=== PATIENT | female | born 1935 | race Caucasian/White ===

== ENCOUNTER 2016-08-10 16:59 | Inpatient (IN) | payer OTHER ==
[2016-08-10 17:08] VITALS: BMI 21.2
--- NOTE | 2016-08-10 19:45 | PDOC ---
History of Present Illness - General History Source: Patient, Old Records Exam Limitations: No Limitations - History of Present Illness Initial Comments: 08/10/16 21:29 Patient is a 80 year old female with significant past medical history of HTN, CAD, hx of kidney ca, chronic kidney disease, and implantable pacemaker/ defibrillator who presents to the ED with hematuria for 5 days. Patient notes that she has been feeling nauseous which is chronic for her. She also reports dysuria and cough. Patient is a poor historian. She denies fever, chills, vomiting, diarrhea, constipation and headache. PSH - Nephrectomy for renal ca, endarterectomy, pacemaker PCP - Dr. May Assembler Crimper - Dr. Radha HER - Dr. Dick <Daylin Oneal - Last Filed: 08/10/16 21:55> <Ronel Hernandez - Last Filed: 08/11/16 01:38> - General Chief Complaint: Urinary Problem Stated Complaint: HEMORRAGE/NAUSEA Time Seen by Provider: 08/10/16 19:44 Past History <Daylin Oneal - Last Filed: 08/10/16 21:55> - Past Medical History Cancer: Yes (LT KIDNEY) Cardiac Disorders: Yes (IRRG HR-PACEMAKER -4 AGO) GI Disorders: Yes (DIVERTICULOSIS) Disorders: Yes (MICROSCOPIC HEMATURIA, GOUT) HTN: Yes Hypercholesterolemia: Yes Suicide Attempt (Hx): No Thyroid Disease: Yes (HYPO) - Surgical History Abdominal Surgery: Yes (LEFT HERNIA REPAIR) Cardiac Surgery: Yes (PACEMAKER,STENT; B/L CAROTID ENDARECTOMIES) Orthopedic Surgery: Yes (INJECTION RIGHT KNEE) - Psycho/Social/Smoking Cessation Hx Anxiety: No Suicidal Ideation: No Smoking Status: Yes Smoking History: Never smoked Have you smoked in the past 12 months: No Number of Cigarettes Smoked Daily: 0 If you are a former smoker, when did you quit?: 2006 Information on smoking cessation initiated: No Hx Alcohol Use: No Drug/Substance Use Hx: No Substance Use Type: None Hx Substance Use Treatment: No <Ronel Hernandez - Last Filed: 08/11/16 01:38> - Past Medical History Allergies/Adverse Reactions: Allergies Allergy/AdvReac Type Severity Reaction Status Date / Time No Known Drug Allergies Allergy Verified 08/10/16 17:04 Home Medications: Ambulatory Orders Alendronate Sodium [Binosto] 70 mg PO WEEKLY 08/10/16 Allopurinol [Zyloprim -] 100 mg PO DAILY 08/10/16 Amlodipine Besylate 10 mg PO DAILY 08/10/16 Aspirin [ASA -] 81 mg PO DAILY 08/10/16 Doxazosin Mesylate 2 mg PO DAILY 08/10/16 Levothyroxine [Synthroid -] 100 mcg PO DAILY 08/10/16 Losartan Potassium [Cozaar -] 25 mg PO DAILY 08/10/16 Metoprolol Succinate [Toprol Xl -] 25 mg PO BID 08/10/16 Rosuvastatin Calcium [Crestor] 10 mg PO DAILY 08/10/16 Review of Systems - Review of Systems Able to Perform ROS?: Yes Comments:: 08/10/16 21:30 CONSTITUTIONAL: Absent: fever, chills, diaphoresis, generalized weakness, malaise, loss of appetite HEENT: Absent: rhinorrhea, nasal congestion, throat pain, throat swelling, difficulty swallowing, mouth swelling, ear pain, eye pain, visual Changes CARDIOVASCULAR: Absent: chest pain, syncope, palpitations, irregular heart rate, lightheadedness , peripheral edema RESPIRATORY: Absent: cough, shortness of breath, dyspnea with exertion, orthopnea, wheezing, stridor, hemoptysis GASTROINTESTINAL: Absent: abdominal pain, abdominal distension, nausea, vomiting, diarrhea, constipation, melena, hematochezia GENITOURINARY: Present: dysruria, hematuria Absent: frequency, urgency, hesitancy, flank pain, genital pain MUSCULOSKELETAL: Absent: myalgia, arthralgia, joint swelling SKIN: Absent: rash, itching, pallor HEMATOLOGIC/IMMUNOLOGIC: Absent: easy bleeding, easy bruising, lymphadenopathy, frequent infections ENDOCRINE: Absent: unexplained weight gain, unexplained weight loss, heat intolerance, cold intolerance NEUROLOGIC: Absent: headache, focal weakness or paresthesias, dizziness, unsteady gait, seizure, mental status changes, bladder or bowel incontinence PSYCHIATRIC: Absent: anxiety, depression, suicidal or homicidal ideation, hallucinations. <Daylin Oneal - Last Filed: 08/10/16 21:55> *Physical Exam - Vital Signs Last Vital Signs Temp Pulse Resp BP Pulse Ox 98.3 F 77 18 130/66 100 08/10/16 17:04 08/10/16 17:04 08/10/16 17:04 08/10/16 17:04 08/10/16 17:04 - Physical Exam Comments: 08/10/16 21:31 GENERAL: Well developed, well nourished. Awake and alert. No acute distress. HEENT: Normocephalic, atraumatic. PERRLA, EOMI. No conjunctival pallor. Sclera are non- icteric. Moist mucous membranes. Oropharynx is clear. NECK: Supple. Full ROM. No JVD. Carotid pulses 2+ and symmetric, without bruits. No thyromegaly. No lymphadenopathy. CARDIOVASCULAR: Regular rate and rhythm. No murmurs, rubs, or gallops. Distal pulses are 2+ and symmetric. PULMONARY: No evidence of respiratory distress. Lungs clear to auscultation bilaterally. No wheezing, rales or rhonchi. ABDOMINAL: Soft. Non-tender. Non-distended. No rebound or guarding. No organomegaly. Normoactive bowel sounds. MUSCULOSKELETAL Normal range of motion at all joints. No bony deformities or tenderness. No CVA tenderness. EXTREMITIES: No cyanosis. No clubbing. No edema. No calf tenderness. SKIN: +Scar from endarterectomy on neck. Warm and dry. Normal capillary refill. No rashes. No jaundice. NEUROLOGICAL: Alert, awake, appropriate. Cranial nerves 2-12 intact. No deficits to light touch and temperature in face, upper extremities and lower extremities. No motor deficits in the in face, upper extremities and lower extremities. Normoreflexic in the upper and lower extremities. Normal speech. Toes are down-going bilaterally. Gait is normal without ataxia. PSYCHIATRIC: Cooperative. Good eye contact. Appropriate mood and affect. <Daylin Oneal - Last Filed: 08/10/16 21:55> - Vital Signs Last Vital Signs Temp Pulse Resp BP Pulse Ox 98.3 F 77 18 130/66 100 08/10/16 17:04 08/10/16 17:04 08/10/16 17:04 08/10/16 17:04 08/10/16 17:04 <Ronel Hernandez - Last Filed: 08/11/16 01:38> ED Treatment Course - LABORATORY CBC & Chemistry Diagram: 08/10/16 20:20 08/10/16 20:20 - ADDITIONAL ORDERS Additional order review: Laboratory Results 08/10/16 08/10/16 20:20 19:55 Sodium 131 L Potassium 4.4 Chloride 96 L Carbon Dioxide 23 Anion Gap 12 BUN 84 H D Creatinine 4.0 H D Creat Clearance w eGFR 10.72 Random Glucose 115 H D Calcium 7.7 L Total Bilirubin 0.4 D AST 48 H D ALT 35 D Alkaline Phosphatase 64 Total Protein 6.5 Albumin 3.1 L Urine Color Dkyellow Urine Appearance Cloudy Urine pH 5.0 Ur Specific [place] 1.012 Urine Protein 2+ H Urine Glucose (UA) Negative Urine Ketones Negative Urine Blood 2+ H Urine Nitrite Negative Urine Bilirubin Negative Urine Urobilinogen Negative Ur Leukocyte Esterase 3+ H D Urine RBC 26 Urine WBC 621 Ur Epithelial Cells Rare Urine Bacteria Many Hyaline Casts 18 Urine Mucus Rare 08/10/16 20:20 RBC 3.74 D MCV 90.4 MCHC 33.6 RDW 15.6 MPV 11.3 H D Neutrophils % 84.0 H Lymphocytes % 7.0 L D Monocytes % 9.0 <Daylin Oneal - Last Filed: 08/10/16 21:55> - LABORATORY CBC & Chemistry Diagram: 08/10/16 20:20 08/10/16 20:20 <Ronel Hernandez - Last Filed: 08/11/16 01:38> Medical Decision Making - Medical Decision Making 08/10/16 21:21 A call was placed to Dr. May. Case discussed with Dr. Chavez A call was placed to Dr. Radha Doty. Awaiting a call back 08/10/16 21:[address] Radha Doty. <Daylin Oneal - Last Filed: 08/10/16 21:55> - Medical Decision Making 08/11/16 01:36 1-year-old female with a history of renal carcinoma status post nephrectomy, chronic kidney disease presents because of hematuria UA reveals a urinary tract infection. Patient is afebrile and her CBC is unremarkable In reviewing her chemistries, her creatinine was 4 and her BUNs in the 80s. In reviewing her past medical records, her creatinine had never been above 1.8 -Dr May was being covered by Dr Chavez and He wants the patient admitted to [facility]. I also spoke to the joint maker machine Dr. Radha Doty who agrees with the MedSurg admission Started on a low dose of Levaquin becasue of the increased creatinine <Ronel Hernandez - Last Filed: 08/11/16 01:38> *DC/Admit/Observation/Transfer - Attestations Scribe Attestion: 08/10/16 21:31 Documentation prepared by MICHELLE Alvarez, acting as medical screener for Ronel Hernandez MD. <Daylin Oneal - Last Filed: 08/10/16 21:55> - Discharge Dispostion Admit: Yes <Ronel Hernandez - Last Filed: 08/11/16 01:38> Diagnosis at time of Disposition: CKD (chronic kidney disease) Qualifiers: Chronic kidney disease stage: unspecified stage Qualified Code(s): N18.9 - Chronic kidney disease, unspecified Acute renal failure Qualifiers: Acute renal failure type: unspecified Qualified Code(s): N17.9 - Acute kidney failure, unspecified UTI (urinary tract infection) Qualifiers: Urinary tract infection type: acute cystitis Hematuria presence: without hematuria Qualified Code(s): N30.00 - Acute cystitis without hematuria - Discharge Dispostion Condition at time of disposition: Stable - Referrals
[2016-08-10 20:31] LABS: MCH 30.4 pg (25.7-33.7); MCHC 33.6 g/dl (32.0-36.0); MEAN CELL VOLUME 90.4 fl (80-96); RDW 15.6 % (11.6-15.6); WHITE BLOOD COUNT 12.2 K/mm3 (4.0-10.0)
[2016-08-10 20:34] LABS: URINE APPEARANCE CLOUDY; URINE BILIRUBIN NEGATIVE (NEGATIVE); URINE COLOR DKYELLOW; URINE GLUCOSE (UA) NEGATIVE (NEGATIVE); URINE KETONE NEGATIVE (NEGATIVE); URINE NITRITE NEGATIVE (NEGATIVE); URINE UROBILINOGEN NEGATIVE E.U./dl (0.2-1.0)
[2016-08-10 20:51] LABS: URINE BLOOD 2+ (NEGATIVE); URINE LEUK ESTERASE 3+ (NEGATIVE); URINE PROTEIN 2+ (NEGATIVE)
[2016-08-10 20:54] LABS: URINE BACTERIA MANY /hpf (NONE SEEN); URINE HYALINE CAST 18 /lpf; URINE MUCUS RARE; URINE RBC 26 /hpf (0-3); URINE WBC 621 /hpf (3-5)
[2016-08-10 20:55] LABS: ALBUMIN 3.1 g/dl (3.4-5.0); BILIRUBIN,TOTAL 0.4 mg/dL (0.2-1.0); CALCIUM 7.7 mg/dL (8.5-10.1); TOT PROT 6.5 g/dl (6.4-8.2)
[2016-08-10 21:03] LABS: MEAN PLT VOLUME 11.3 fl (7.5-11.1); PLATELET COUNT 139 K/MM3 (134-434)
[2016-08-10 21:04] LABS: PLATELET COMMENT2 NO CLUMPING NOTED; PLATELET ESTIMATE DECREASED (NORMAL); POLYCHROMASIA FEW
[2016-08-10] MEDS ORDERED: LEVOFLOXACIN 500 MG IVPB 100 ML IVPB ONE ×2 (21:12→21:43)
[2016-08-10] MEDS ORDERED: SODIUM CHLORIDE 500 ML IV STA (21:17)
[2016-08-10] MEDS ORDERED: LEVOFLOXACIN 250 MG IVPB 50 ML IVPB ONE (21:49)
[2016-08-10] MEDS ORDERED: ONDANSETRON 4 MG/2 ML VIAL IVPB PRN (22:04)
[2016-08-10] MEDS ORDERED: ACETAMINOPHEN 325 MG TABLET (FP) PO PRN (22:04)
[2016-08-10] MEDS ORDERED: LEVOFLOXACIN 750 MG TABLET PO STA (22:10)
[2016-08-10] MEDS: SODIUM CHLORIDE 1,000 ML IV SCH (22:19)
[2016-08-11] MEDS ORDERED: LEVOTHYROXINE NA 25 MCG TABLET (FP) ONE (06:15)
[2016-08-11] MEDS: LEVOTHYROXINE NA 100 MCG TABLET (FP) PO SCH (07:19)
[2016-08-11 08:11] LABS: BASOPHIL 0.2 % (0-2.0); EOSINOPHIL 0.1 % (0-4.5); MCH 30.5 pg (25.7-33.7); MCHC 33.5 g/dl (32.0-36.0); MEAN PLT VOLUME 10.8 fl (7.5-11.1); NEUTROPHILS 84.2 % (42.8-82.8); PLATELET COUNT 86 K/MM3 (134-434); RDW 15.5 % (11.6-15.6); WHITE BLOOD COUNT 6.6 K/mm3 (4.0-10.0)
[2016-08-11 08:47] LABS: CALCIUM 7.4 mg/dL (8.5-10.1)
[2016-08-11 08:49] LABS: PHOSPHOROUS 2.6 mg/dL (2.5-4.9)
--- NOTE | 2016-08-11 09:53 | CONSULT ---
Consult Consult Specialty:: Nephrology ( Drs. radha Doty/ Hal) Reason for Consultation:: 80 y/o female admitted with gross Hematuria and markedly elevated Serum Creatinine. Has h/o CKD 3, and in May 2016 her Serum Cr was 1.85 with a eGFR of 25. Also has h/o Hypertension, AICD, Coronary artery disease. Patient had pain when passing urine for the past week, and reports gross blood for the same period. - History Source History Provided By: Patient, Medical Record Limitations to Obtaining History: No Limitations - Past Medical History Cardio/Vascular: Yes: CAD, HTN, Other (pacemaker) Pulmonary: Yes: COPD Renal/: Yes: Renal Inusuff, Cancer (Patient has h/o partial nephrectomy for Ca Kidney) Endocrine: Yes: Hypothyroidism - Past Surgical History Past Surgical History: Yes: Carotid Endarterectomy - Alcohol/Substance Use Hx Alcohol Use: No - Smoking History Smoking history: Never smoked Have you smoked in the past 12 months: No Aproximately how many cigarettes per day: 0 If you are a former smoker, when did you quit?: 2006 Home Medications - Allergies Allergies/Adverse Reactions: Allergies Allergy/AdvReac Type Severity Reaction Status Date / Time No Known Drug Allergies Allergy Verified 08/10/16 17:04 - Home Medications Home Medications: Ambulatory Orders Alendronate Sodium [Binosto] 70 mg PO WEEKLY 08/10/16 Allopurinol [Zyloprim -] 100 mg PO DAILY 08/10/16 Amlodipine Besylate 10 mg PO DAILY 08/10/16 Aspirin [ASA -] 81 mg PO DAILY 08/10/16 Doxazosin Mesylate 2 mg PO DAILY 08/10/16 Levothyroxine [Synthroid -] 100 mcg PO DAILY 08/10/16 Losartan Potassium [Cozaar -] 25 mg PO DAILY 08/10/16 Metoprolol Succinate [Toprol Xl -] 25 mg PO BID 08/10/16 Rosuvastatin Calcium [Crestor] 10 mg PO DAILY 08/10/16 Review of Systems - Review of Systems Constitutional: reports: No Symptoms Eyes: reports: No Symptoms HENT: reports: No Symptoms Neck: reports: No Symptoms Cardiovascular: denies: Chest Pain Respiratory: denies: No Symptoms Genitourinary: reports: Hematuria, Pain Neurological: reports: No Symptoms Hematology/Lymphatic: reports: No Symptoms Physical Exam Vital Signs: Vital Signs Temperature 99.7 F H 01/24/17 06:05 Pulse Rate 96 H 08/11/16 09:07 Respiratory Rate 20 08/11/16 09:07 Blood Pressure 116/67 08/11/16 09:07 O2 Sat by Pulse Oximetry (%) 100 08/10/16 17:04 Constitutional: Yes: No Distress, Calm HENT: Yes: Normocephalic Neck: Yes: Trachea Midline Respiratory: Yes: CTA Bilaterally Gastrointestinal: Yes: Normal Bowel Sounds, Soft Renal/: Yes: Hematuria Extremities: Yes: WNL Wound/Incision: Yes: Clean/Dry Neurological: Yes: Alert, Oriented Labs: CBC, BMP 08/11/16 07:15 08/11/16 07:15 Problem List - Problems (1) Acute renal failure Code(s): N17.9 - ACUTE KIDNEY FAILURE, UNSPECIFIED Qualifiers: Acute renal failure type: unspecified Qualified Code(s): N17.9 - Acute kidney failure, unspecified (2) CKD (chronic kidney disease) Code(s): N18.9 - CHRONIC KIDNEY DISEASE, UNSPECIFIED Qualifiers: Chronic kidney disease stage: unspecified stage Qualified Code(s): N18.9 - Chronic kidney disease, unspecified (3) UTI (urinary tract infection) Code(s): N39.0 - URINARY TRACT INFECTION, SITE NOT SPECIFIED Qualifiers: Urinary tract infection type: acute cystitis Hematuria presence: without hematuria Qualified Code(s): N30.00 - Acute cystitis without hematuria (4) CAD (coronary artery disease) Code(s): I25.10 - ATHSCL HEART DISEASE OF [place] CORONARY ARTERY W/O ANG PCTRS (5) Carotid atherosclerosis Code(s): I65.29 - OCCLUSION AND STENOSIS OF UNSPECIFIED CAROTID ARTERY (6) Hypothyroidism Code(s): E03.9 - HYPOTHYROIDISM, UNSPECIFIED (7) Pacemaker Code(s): Z95.0 - PRESENCE OF CARDIAC PACEMAKER (8) Hematuria Code(s): R31.9 - HEMATURIA, UNSPECIFIED Assessment/Plan 80 y/o female admitted with 1. Gross Hematuria. Hemorrhagic cystitis being entertained, but the likely Dx of a Neoplasm can not be ignored. 2. Acute Kidney Injury, the etiology of which seems to be elusive at this point. Can not exclude the possibility of an obstructive uropathy. Also need to r/o other etiologic factors. 3. Anemia of blood loss. 4. Coronary artery disease 5. Peripheral Vascular disease. S/p Carotid endarterectomy 6. Hypothyroidism. Will continue the Antibiotics. evaluation Monitor the Renal functions. Thank you. Will follow with you. Radha Doty MD
[2016-08-11] MEDS ORDERED: HEPARIN NA (PORCINE) 5,000 UNITS/ML 1ML VIAL SQ SCH (10:00)
[2016-08-11] MEDS ORDERED: ASPIRIN 81 MG CHEWABLE TABLETS PO SCH (10:00)
[2016-08-11] MEDS ORDERED: CEFTRIAXONE 1 GM in DEXTROSE 5%-WATER - 50 ML IVPB SCH (10:00)
[2016-08-11] MEDS: LACTOBACILLUS ACIDOPHILUS 1 EACH TAB (FP) PO SCH (11:07)
[2016-08-11] MEDS: amLODIPine BESYLATE 10 MG TABLET (FP) PO SCH (11:07)
[2016-08-11] MEDS: cefTRIAXone 1 GM/50 ML BAG (PRE-DOCKED) IVPB SCH (11:08)
[2016-08-11] MEDS: METOPROLOL SUCCINATE 25 MG TAB.SR.24H (FP) PO SCH ×2 (11:08→21:47)
[2016-08-11] MEDS: SODIUM CHLORIDE 1,000 ML IV SCH (11:10)
--- NOTE | 2016-08-11 11:59 | HP ---
Admitting History and Physical - Primary Care Physician PCP: Jhoan May - Admission Chief Complaint: I felt terrible History of Present Illness: Ms Kiran is a very pleasant 80 year old female who comes in complaining of weakness. She says between a few weeks to a few months ago she was treated for strep throat. She says she completed this course but it took her a long time to get over it. Then she says she began to feel weak (I cannot determine when this started as she is unable to tell me) that became progressively worse. She does not know if she was feverish but did not feel hot/cold. She did not have lightheadedness or passing out. She denies cp and sob secondary to this. She has chronic nausea that is unchanged. She denies diarrhea and constipation. She says she has pain with urination and difficulty, and she recently had blood in her urine and it was "a lot". She denies swelling in her leg. She presented to the ER and was found to have a UTI and ARF. Currently she is saying she feels much better. History Source: Patient Limitations to Obtaining History: No Limitations - Past Medical History Cardiovascular: Yes: CAD, HTN, Other (pacemaker) Pulmonary: Yes: COPD Renal/: Yes: Renal Inusuff, Cancer (Patient has h/o partial nephrectomy for Ca Kidney) Endocrine: Yes: Hypothyroidism - Past Surgical History Past Surgical History: Yes: Carotid Endarterectomy, Hernia Repair, Nephrectomy ( partial) - Smoking History Smoking history: Never smoked Have you smoked in the past 12 months: No Aproximately how many cigarettes per day: 0 If you are a former smoker, when did you quit?: 2006 - Alcohol/Substance Use Hx Alcohol Use: No History of Substance Use: reports: None - Social History ADL: Independent Home Medications - Allergies Allergies/Adverse Reactions: Allergies Allergy/AdvReac Type Severity Reaction Status Date / Time No Known Drug Allergies Allergy Verified 08/10/16 17:04 - Home Medications Home Medications: Ambulatory Orders Alendronate Sodium [Binosto] 70 mg PO WEEKLY 08/10/16 Allopurinol [Zyloprim -] 100 mg PO DAILY 08/10/16 Amlodipine Besylate 10 mg PO DAILY 08/10/16 Aspirin [ASA -] 81 mg PO DAILY 08/10/16 Doxazosin Mesylate 2 mg PO DAILY 08/10/16 Levothyroxine [Synthroid -] 100 mcg PO DAILY 08/10/16 Losartan Potassium [Cozaar -] 25 mg PO DAILY 08/10/16 Metoprolol Succinate [Toprol Xl -] 25 mg PO BID 08/10/16 Rosuvastatin Calcium [Crestor] 10 mg PO DAILY 08/10/16 Family Disease History - Family Disease History Family Disease History: Other: Brother (arthritis) Review of Systems Findings/Remarks: full review of systems obtained, as per HPI and otherwise negative Physical Examination Vital Signs: Vital Signs Temperature 99.2 F 08/11/16 10:00 Pulse Rate 74 08/11/16 10:00 Respiratory Rate 20 08/11/16 10:00 Blood Pressure 110/57 08/11/16 10:00 O2 Sat by Pulse Oximetry (%) 100 08/10/16 17:04 Constitutional: Yes: Well Nourished, No Distress, Calm Eyes: Yes: Conjunctiva Clear, EOM Intact HENT: Yes: Atraumatic, Normocephalic Cardiovascular: Yes: Regular Rate and Rhythm. No: Gallop, Murmur, Rub Respiratory: Yes: Regular, CTA Bilaterally. No: Rales, Rhonchi, Wheezes Gastrointestinal: Yes: Normal Bowel Sounds, Soft. No: Distention, Tenderness Extremities: Yes: WNL Edema: No Labs: CBC, BMP 08/11/16 07:15 08/11/16 07:15 Imaging - Results Chest X-ray: Report Reviewed, Image Reviewed Problem List - Problems (1) UTI (urinary tract infection) Assessment/Plan: -patient presents with weakness and hematuria -urinalysis positive for UTI -cultures pending -given levaquin in the ED -will change to rocephin secondary to renal function -patient says feeling improved Code(s): N39.0 - URINARY TRACT INFECTION, SITE NOT SPECIFIED Qualifiers: Urinary tract infection type: acute cystitis Hematuria presence: with hematuria Qualified Code(s): N30.01 - Acute cystitis with hematuria (2) Acute renal failure Assessment/Plan: -patient with significantly increase creatinine -nephrology consulted -follow up renal ultrasound and bladder ultrasound -continue hydration Code(s): N17.9 - ACUTE KIDNEY FAILURE, UNSPECIFIED Qualifiers: Acute renal failure type: unspecified Qualified Code(s): N17.9 - Acute kidney failure, unspecified (3) CKD (chronic kidney disease) Assessment/Plan: -with ARF -nephrology following -baseline creatinine around 1.8 Code(s): N18.9 - CHRONIC KIDNEY DISEASE, UNSPECIFIED Qualifiers: Chronic kidney disease stage: unspecified stage Qualified Code(s): N18.9 - Chronic kidney disease, unspecified (4) Hematuria Assessment/Plan: -? secondary to UTI, but must consider malignancy considering history -urology consult -holding aspirin -change heparin to SCDs -monitor, currently urine looks clear Code(s): R31.9 - HEMATURIA, UNSPECIFIED (5) HLD (hyperlipidemia) Assessment/Plan: -continue crestor Code(s): E78.5 - HYPERLIPIDEMIA, UNSPECIFIED (6) HTN (hypertension) Assessment/Plan: -continue toprol xl, cardura, and norvasc -well controlled Code(s): I10 - ESSENTIAL (PRIMARY) HYPERTENSION (7) Hypothyroidism Assessment/Plan: -continue synthroid Code(s): E03.9 - HYPOTHYROIDISM, UNSPECIFIED (8) CAD (coronary artery disease) Assessment/Plan: -quiescent -holding aspirin secondary to hematuria -otherwise continue home regimen Code(s): I25.10 - ATHSCL HEART DISEASE OF [place] CORONARY ARTERY W/O ANG PCTRS
--- NOTE | 2016-08-11 12:46 | EKG ---
Test Reason : Blood Pressure : / mmHG Vent. Rate : 092 BPM Atrial Rate : 092 BPM P-R Int : 296 ms QRS Dur : 168 ms QT Int : 422 ms P-R-T Axes : 000 -76 092 degrees QTc Int : 521 ms Atrial-sensed ventricular-paced rhythm with prolonged AV conduction WITH OCCASIONAL PREMATURE VENTRICULAR COMPLEXES ABNORMAL ECG WHEN COMPARED WITH ECG OF 21-FEB-2013 14:26, NO SIGNIFICANT CHANGE WAS FOUND Confirmed by RICARDO FIGUEROA, ABDIAZIZ ([id number]) on 08/11/2016 12:45:51 PM Referred By: Confirmed By:ABDIAZIZ SILVA MD
[2016-08-11] MEDS: DOXAZOSIN MESYLATE 2 MG TABLET (FP) PO SCH (16:03)
[2016-08-11] MEDS ORDERED: PT OWN MED DRAWER 7, Y5N ONE ×2 (20:58→21:06)
[2016-08-11] MEDS: ROSUVASTATIN CA 10 MG TABLET (FP) PO SCH (21:46)
[2016-08-12] MEDS: LEVOTHYROXINE NA 100 MCG TABLET (FP) PO SCH (06:14)
[2016-08-12 07:05] LABS: BASOPHIL 0.5 % (0-2.0); EOSINOPHIL 0.4 % (0-4.5); MCH 30.5 pg (25.7-33.7); MCHC 34.1 g/dl (32.0-36.0); MEAN CELL VOLUME 89.4 fl (80-96); MEAN PLT VOLUME 11.2 fl (7.5-11.1); NEUTROPHILS 81.3 % (42.8-82.8); PLATELET COUNT 107 K/MM3 (134-434); RDW 15.9 % (11.6-15.6); WHITE BLOOD COUNT 6.6 K/mm3 (4.0-10.0)
[2016-08-12 07:32] LABS: ALBUMIN 2.5 g/dl (3.4-5.0); BILIRUBIN,TOTAL 0.3 mg/dL (0.2-1.0); CALCIUM 7.5 mg/dL (8.5-10.1); CREATININE 3.8 mg/dL (0.55-1.02); MAGNESIUM 2.2 mg/dL (1.8-2.4); PHOSPHOROUS 3.1 mg/dL (2.5-4.9); TOT PROT 5.7 g/dl (6.4-8.2)
[2016-08-12] MEDS: LACTOBACILLUS ACIDOPHILUS 1 EACH TAB (FP) PO SCH (10:14)
[2016-08-12] MEDS: amLODIPine BESYLATE 10 MG TABLET (FP) PO SCH (10:14)
[2016-08-12] MEDS: METOPROLOL SUCCINATE 25 MG TAB.SR.24H (FP) PO SCH ×2 (10:14→21:54)
[2016-08-12] MEDS: cefTRIAXone 1 GM/50 ML BAG (PRE-DOCKED) IVPB SCH (10:14)
[2016-08-12] MEDS: DOXAZOSIN MESYLATE 2 MG TABLET (FP) PO SCH (10:16)
--- NOTE | 2016-08-12 10:26 | PN ---
Progress Note (short form) - Note Progress Note: Renal Follow up for NORMAN on CKD Pt seen and examined in the ICU awake and alert no acute complaints denies any further hematuria no abd pain No N/V/D denies sob, chest pain Vital Signs Temperature 97.8 F 08/12/16 06:00 Pulse Rate 80 08/12/16 06:00 Respiratory Rate 18 08/12/16 06:00 Blood Pressure 105/59 08/12/16 06:00 O2 Sat by Pulse Oximetry (%) 95 08/11/16 21:00 Intake & Output 08/09/16 08/10/16 08/11/16 08/12/16 23:59 23:59 23:59 23:59 Intake Total 600 600 Output Total 350 Balance 250 600 Weight 116 lb Gen: NAD, awake and alert HEENT: NC/AT, no JVD CVS: RRR, No M/R Lungs: CTA no rales or wheeze Abd: soft NT/ND Ext: No edema, clubbing or cyanosis : No bladder distension CBC, BMP 08/12/16 05:20 08/12/16 05:20 Laboratory Tests 08/10/16 08/12/16 19:55 05:20 Calcium 7.5 L Phosphorus 3.1 Magnesium 2.2 AST 128 H D ALT 99 H D Albumin 2.5 L Urine Protein 2+ H Urine Blood 2+ H Ur Leukocyte Esterase 3+ H D Urine RBC 26 Urine WBC 621 Renal US: 12.2/8.9 Hyperechoic kidneys w/o hydronephrosis. Diffuse thickening of bladder wall. Current Medications Acetaminophen (Tylenol -) 650 mg PO Q4H PRN PRN Reason: FEVER OR PAIN Amlodipine Besylate (Norvasc -) 10 mg PO DAILY [facility] Last Admin: 08/12/16 10:14 Dose: 10 mg Ceftriaxone Sodium (Rocephin 1gm Ivpb (Pre-Docked)) 1 gm IVPB DAILY [facility] Last Admin: 08/12/16 10:14 Dose: 1 gm Doxazosin Mesylate (Cardura -) 2 mg PO DAILY [facility] Last Admin: 08/12/16 10:16 Dose: 2 mg Lactobacillus Acidophilus (Bacid -) 1 tab PO DAILY [facility] Last Admin: 08/12/16 10:14 Dose: 1 tab Levothyroxine Sodium (Synthroid -) 100 mcg PO DAILY@0700 [facility] Last Admin: 08/12/16 06:14 Dose: 100 mcg Metoprolol Succinate (Toprol Xl -) 25 mg PO BID [facility] Last Admin: 08/12/16 10:14 Dose: 25 mg Ondansetron HCl (Zofran Injection) 4 mg IVPB Q6H PRN PRN Reason: NAUSEA Rosuvastatin Calcium (Crestor -) 10 mg PO HS [facility] Last Admin: 08/11/16 21:46 Dose: 10 mg A/P 80 Year old woman with PMhx of CKD Stage 3 (baseline Cr 1.85), Hypertension, AICD presented with hematuria and found to have Acute Kidney Injury with Cr of 4. #Acute on Chronic Renal Insufficiency Etiolgy remains unclear Renal US shows no acute obstruction UA with 2+ blood and 2+ protein in setting of suspected UTI Pt with history of sore throat (not confirmed to have strep) -> will need to r/ o post strep GN Check C3, C4, CH50, ASO Check FeNa, UPCR continue gentle IVF for now avoid JUANCHO/ARB no acute indication for WAISTLINE JOINER LOCKSTITCH at this time Dose all meds for Cr Cl less then 10 #Hematuria/UTI hematuria resolving continue Abx as per PMD f/u cultures #Hypertension Hold amlodipine for now as BP is marginal #Hyponatremia improving with isotionic saline Thank you will follow Lalo Hong
[2016-08-12] MEDS ORDERED: SODIUM CHLORIDE 1,000 ML IV SCH (10:45)
--- NOTE | 2016-08-12 15:17 | CONSULT ---
Consult Consult Specialty:: urology Reason for Consultation:: gross hematuria - History of Present Illness Chief Complaint: gross hematuria History of Present Illness: 80 year old female with a history of a partial nephrectomy who came in with weakness was noted to have gross hematuria yesterday in the setting of an enterococcus UTI. With antibiotics this has resolved. - History Source History Provided By: Patient, Medical Record Limitations to Obtaining History: No Limitations - Past Medical History Cardio/Vascular: Yes: CAD, HTN, Other (pacemaker) Pulmonary: Yes: COPD Renal/: Yes: Renal Inusuff, Cancer (Patient has h/o partial nephrectomy for Ca Kidney) Endocrine: Yes: Hypothyroidism - Past Surgical History Past Surgical History: Yes: Carotid Endarterectomy, Hernia Repair, Nephrectomy ( partial) - Alcohol/Substance Use Hx Alcohol Use: No History of Substance Use: reports: None - Smoking History Smoking history: Never smoked Have you smoked in the past 12 months: No Aproximately how many cigarettes per day: 0 If you are a former smoker, when did you quit?: 2006 - Social History ADL: Independent Home Medications - Allergies Allergies/Adverse Reactions: Allergies Allergy/AdvReac Type Severity Reaction Status Date / Time No Known Drug Allergies Allergy Verified 08/10/16 17:04 - Home Medications Home Medications: Ambulatory Orders Alendronate Sodium [Binosto] 70 mg PO WEEKLY 08/10/16 Allopurinol [Zyloprim -] 100 mg PO DAILY 08/10/16 Amlodipine Besylate 10 mg PO DAILY 08/10/16 Aspirin [ASA -] 81 mg PO DAILY 08/10/16 Doxazosin Mesylate 2 mg PO DAILY 08/10/16 Levothyroxine [Synthroid -] 100 mcg PO DAILY 08/10/16 Losartan Potassium [Cozaar -] 25 mg PO DAILY 08/10/16 Metoprolol Succinate [Toprol Xl -] 25 mg PO BID 08/10/16 Rosuvastatin Calcium [Crestor] 10 mg PO DAILY 08/10/16 Family Disease History - Family Disease History Family Disease History: Other: Brother (arthritis) Review of Systems - Review of Systems Genitourinary: reports: Hematuria Physical Exam Vital Signs: Vital Signs Temperature 98.2 F 08/12/16 10:00 Pulse Rate 84 08/12/16 10:00 Respiratory Rate 18 08/12/16 10:00 Blood Pressure 110/97 08/12/16 10:00 O2 Sat by Pulse Oximetry (%) 95 08/12/16 10:00 Renal/: No: Bladder Distention, CVA Tenderness - Left, CVA Tenderness - Right , Foote Present, Hematuria Labs: CBC, BMP 08/12/16 05:20 08/12/16 05:20 Problem List - Problems (1) Hematuria Assessment/Plan: h/o kidney CA. CT ordered. treat UTI. cystoscopy as outpatient after UTI treated Code(s): R31.9 - HEMATURIA, UNSPECIFIED
--- NOTE | 2016-08-12 20:22 | PN ---
Progress Note, Physician Chief Complaint: Ms Kiran is without complaint. Denies cp, sob, n/v. - Current Medication List Current Medications: Active Medications Acetaminophen (Tylenol -) 650 mg PO Q4H PRN PRN Reason: FEVER OR PAIN Amlodipine Besylate (Norvasc -) 10 mg PO DAILY [facility] Last Admin: 08/12/16 10:14 Dose: 10 mg Ceftriaxone Sodium (Rocephin 1gm Ivpb (Pre-Docked)) 1 gm IVPB DAILY [facility] Last Admin: 08/12/16 10:14 Dose: 1 gm Doxazosin Mesylate (Cardura -) 2 mg PO DAILY [facility] Last Admin: 08/12/16 10:16 Dose: 2 mg Sodium Chloride (Normal Saline -) 1,000 mls @ 50 mls/hr IV ASDIR [facility] Stop: 08/13/16 10:32 Lactobacillus Acidophilus (Bacid -) 1 tab PO DAILY [facility] Last Admin: 08/12/16 10:14 Dose: 1 tab Levothyroxine Sodium (Synthroid -) 100 mcg PO DAILY@0700 [facility] Last Admin: 08/12/16 06:14 Dose: 100 mcg Metoprolol Succinate (Toprol Xl -) 25 mg PO BID [facility] Last Admin: 08/12/16 10:14 Dose: 25 mg Ondansetron HCl (Zofran Injection) 4 mg IVPB Q6H PRN PRN Reason: NAUSEA Rosuvastatin Calcium (Crestor -) 10 mg PO HS [facility] Last Admin: 08/11/16 21:46 Dose: 10 mg - Objective Vital Signs: Vital Signs Temperature 98.5 F 08/12/16 15:21 Pulse Rate 82 08/12/16 15:21 Respiratory Rate 18 08/12/16 15:21 Blood Pressure 100/55 08/12/16 15:21 O2 Sat by Pulse Oximetry (%) 95 08/12/16 10:00 Constitutional: Yes: Well Nourished, No Distress, Calm Cardiovascular: Yes: Regular Rate and Rhythm. No: Gallop, Murmur, Rub Respiratory: Yes: Regular, CTA Bilaterally. No: Rales, Rhonchi, Wheezes Gastrointestinal: Yes: Normal Bowel Sounds, Soft. No: Distention, Tenderness Extremities: Yes: WNL Edema: No Labs: CBC, BMP 08/12/16 05:20 08/12/16 05:20 Problem List - Problems (1) UTI (urinary tract infection) Code(s): N39.0 - URINARY TRACT INFECTION, SITE NOT SPECIFIED Qualifiers: Urinary tract infection type: acute cystitis Hematuria presence: with hematuria Qualified Code(s): N30.01 - Acute cystitis with hematuria (2) Acute renal failure Code(s): N17.9 - ACUTE KIDNEY FAILURE, UNSPECIFIED Qualifiers: Acute renal failure type: unspecified Qualified Code(s): N17.9 - Acute kidney failure, unspecified (3) CKD (chronic kidney disease) Code(s): N18.9 - CHRONIC KIDNEY DISEASE, UNSPECIFIED Qualifiers: Chronic kidney disease stage: unspecified stage Qualified Code(s): N18.9 - Chronic kidney disease, unspecified (4) Hematuria Code(s): R31.9 - HEMATURIA, UNSPECIFIED (5) HLD (hyperlipidemia) Code(s): E78.5 - HYPERLIPIDEMIA, UNSPECIFIED (6) HTN (hypertension) Code(s): I10 - ESSENTIAL (PRIMARY) HYPERTENSION (7) Hypothyroidism Code(s): E03.9 - HYPOTHYROIDISM, UNSPECIFIED (8) CAD (coronary artery disease) Code(s): I25.10 - ATHSCL HEART DISEASE OF [place] CORONARY ARTERY W/O ANG PCTRS Assessment/Plan (1) UTI (urinary tract infection) Assessment/Plan: -urine cultures showing enterococcus -will await culture results -continue rocephin currently, patient is improving Code(s): N39.0 - URINARY TRACT INFECTION, SITE NOT SPECIFIED Qualifiers: Urinary tract infection type: acute cystitis Hematuria presence: with hematuria Qualified Code(s): N30.01 - Acute cystitis with hematuria (2) Acute renal failure Assessment/Plan: -creatinine slightly improved -nephrology following -continue IVF Code(s): N17.9 - ACUTE KIDNEY FAILURE, UNSPECIFIED Qualifiers: Acute renal failure type: unspecified Qualified Code(s): N17.9 - Acute kidney failure, unspecified (3) CKD (chronic kidney disease) Assessment/Plan: -with ARF -nephrology following -baseline creatinine around 1.8 Code(s): N18.9 - CHRONIC KIDNEY DISEASE, UNSPECIFIED Qualifiers: Chronic kidney disease stage: unspecified stage Qualified Code(s): N18.9 - Chronic kidney disease, unspecified (4) Hematuria Assessment/Plan: -ultrasound and CT scan results reviewed -appreciate urology assistance -outpatient cystoscopy Code(s): R31.9 - HEMATURIA, UNSPECIFIED (5) HLD (hyperlipidemia) Assessment/Plan: -continue crestor Code(s): E78.5 - HYPERLIPIDEMIA, UNSPECIFIED (6) HTN (hypertension) Assessment/Plan: -continue toprol xl, cardura, and norvasc -well controlled Code(s): I10 - ESSENTIAL (PRIMARY) HYPERTENSION (7) Hypothyroidism Assessment/Plan: -continue synthroid Code(s): E03.9 - HYPOTHYROIDISM, UNSPECIFIED (8) CAD (coronary artery disease) Assessment/Plan: -quiescent -holding aspirin secondary to hematuria -otherwise continue home regimen Code(s): I25.10 - ATHSCL HEART DISEASE OF [place] CORONARY ARTERY W/O ANG PCTRS
[2016-08-12] MEDS ORDERED: PT OWN MED DRAWER 7, Y5N ONE (21:47)
[2016-08-12] MEDS: ROSUVASTATIN CA 10 MG TABLET (FP) PO SCH (21:53)
[2016-08-13 06:06] LABS: COMPLEMENT C3 85 mg/dL (82-167); COMPLEMENT C4 28 mg/dL (14-44)
[2016-08-13 06:52] LABS: BASOPHIL 0.8 % (0-2.0); EOSINOPHIL 0.9 % (0-4.5); MCH 30.1 pg (25.7-33.7); MCHC 33.5 g/dl (32.0-36.0); MEAN CELL VOLUME 89.6 fl (80-96); MEAN PLT VOLUME 10.7 fl (7.5-11.1); NEUTROPHILS 79.6 % (42.8-82.8); PLATELET COUNT 126 K/MM3 (134-434); RDW 16.3 % (11.6-15.6); WHITE BLOOD COUNT 6.2 K/mm3 (4.0-10.0)
[2016-08-13] MEDS: LEVOTHYROXINE NA 100 MCG TABLET (FP) PO SCH (07:06)
[2016-08-13 07:33] LABS: ALBUMIN 2.1 g/dl (3.4-5.0); BILIRUBIN,TOTAL 0.3 mg/dL (0.2-1.0); CALCIUM 7.9 mg/dL (8.5-10.1); CREATININE 3.3 mg/dL (0.55-1.02); PHOSPHOROUS 3.5 mg/dL (2.5-4.9)
[2016-08-13] MEDS ORDERED: PT OWN MED DRAWER 7, Y5N ONE (10:44)
[2016-08-13] MEDS: amLODIPine BESYLATE 10 MG TABLET (FP) PO SCH ×3 (10:46→16:32)
[2016-08-13] MEDS: METOPROLOL SUCCINATE 25 MG TAB.SR.24H (FP) PO SCH ×2 (10:46→21:25)
[2016-08-13] MEDS: cefTRIAXone 1 GM/50 ML BAG (PRE-DOCKED) IVPB SCH (10:46)
[2016-08-13] MEDS: LACTOBACILLUS ACIDOPHILUS 1 EACH TAB (FP) PO SCH (10:46)
--- NOTE | 2016-08-13 11:48 | PN ---
Progress Note, Physician Chief Complaint: Ms Kiran is without complaint. Denies cp, sob, n/v. Says she is feeling much better. - Current Medication List Current Medications: Active Medications Acetaminophen (Tylenol -) 650 mg PO Q4H PRN PRN Reason: FEVER OR PAIN Amlodipine Besylate (Norvasc -) 10 mg PO DAILY [facility] Last Admin: 08/13/16 11:11 Dose: Not Given Amoxicillin/Clavulanate Potassium (Augmentin - 875mg Tablet) 1 tab PO BID@0800, 1730 [facility] Doxazosin Mesylate (Cardura -) 2 mg PO DAILY [facility] Last Admin: 08/12/16 10:16 Dose: 2 mg Lactobacillus Acidophilus (Bacid -) 1 tab PO DAILY [facility] Last Admin: 08/13/16 10:46 Dose: 1 tab Levothyroxine Sodium (Synthroid -) 100 mcg PO DAILY@0700 [facility] Last Admin: 08/13/16 07:06 Dose: 100 mcg Metoprolol Succinate (Toprol Xl -) 25 mg PO BID [facility] Last Admin: 08/13/16 10:46 Dose: 25 mg Ondansetron HCl (Zofran Injection) 4 mg IVPB Q6H PRN PRN Reason: NAUSEA Rosuvastatin Calcium (Crestor -) 10 mg PO HS [facility] Last Admin: 08/12/16 21:53 Dose: Not Given - Objective Vital Signs: Vital Signs Temperature 98.1 F 08/13/16 10:00 Pulse Rate 68 08/13/16 10:00 Respiratory Rate 18 08/13/16 10:00 Blood Pressure 106/66 08/13/16 10:00 O2 Sat by Pulse Oximetry (%) 95 08/13/16 09:00 Constitutional: Yes: Well Nourished, No Distress, Calm Cardiovascular: Yes: Regular Rate and Rhythm. No: Gallop, Murmur, Rub Respiratory: Yes: Regular, CTA Bilaterally. No: Rales, Rhonchi, Wheezes Gastrointestinal: Yes: Normal Bowel Sounds, Soft. No: Distention, Tenderness Extremities: Yes: WNL Edema: No Labs: CBC, BMP 08/13/16 05:15 08/13/16 05:15 Problem List - Problems (1) UTI (urinary tract infection) Code(s): N39.0 - URINARY TRACT INFECTION, SITE NOT SPECIFIED Qualifiers: Urinary tract infection type: acute cystitis Hematuria presence: with hematuria Qualified Code(s): N30.01 - Acute cystitis with hematuria (2) Acute renal failure Code(s): N17.9 - ACUTE KIDNEY FAILURE, UNSPECIFIED Qualifiers: Acute renal failure type: unspecified Qualified Code(s): N17.9 - Acute kidney failure, unspecified (3) CKD (chronic kidney disease) Code(s): N18.9 - CHRONIC KIDNEY DISEASE, UNSPECIFIED Qualifiers: Chronic kidney disease stage: unspecified stage Qualified Code(s): N18.9 - Chronic kidney disease, unspecified (4) Hematuria Code(s): R31.9 - HEMATURIA, UNSPECIFIED (5) HLD (hyperlipidemia) Code(s): E78.5 - HYPERLIPIDEMIA, UNSPECIFIED (6) HTN (hypertension) Code(s): I10 - ESSENTIAL (PRIMARY) HYPERTENSION (7) Hypothyroidism Code(s): E03.9 - HYPOTHYROIDISM, UNSPECIFIED (8) CAD (coronary artery disease) Code(s): I25.10 - ATHSCL HEART DISEASE OF [place] CORONARY ARTERY W/O ANG PCTRS Assessment/Plan (1) UTI (urinary tract infection) Assessment/Plan: -growing group d strep or enterococcus -patient leukocytosis resolved and no difficulty swallowing -will change to augmentin -await culture results Code(s): N39.0 - URINARY TRACT INFECTION, SITE NOT SPECIFIED Qualifiers: Urinary tract infection type: acute cystitis Hematuria presence: with hematuria Qualified Code(s): N30.01 - Acute cystitis with hematuria (2) Acute renal failure Assessment/Plan: -creatinine improving -nephrology following -continue IVF Code(s): N17.9 - ACUTE KIDNEY FAILURE, UNSPECIFIED Qualifiers: Acute renal failure type: unspecified Qualified Code(s): N17.9 - Acute kidney failure, unspecified (3) CKD (chronic kidney disease) Assessment/Plan: -with ARF -nephrology following -baseline creatinine around 1.8 Code(s): N18.9 - CHRONIC KIDNEY DISEASE, UNSPECIFIED Qualifiers: Chronic kidney disease stage: unspecified stage Qualified Code(s): N18.9 - Chronic kidney disease, unspecified (4) Hematuria Assessment/Plan: -ultrasound and CT scan results reviewed -appreciate urology assistance -outpatient cystoscopy Code(s): R31.9 - HEMATURIA, UNSPECIFIED (5) HLD (hyperlipidemia) Assessment/Plan: -continue crestor Code(s): E78.5 - HYPERLIPIDEMIA, UNSPECIFIED (6) HTN (hypertension) Assessment/Plan: -continue toprol xl, cardura, and norvasc -well controlled Code(s): I10 - ESSENTIAL (PRIMARY) HYPERTENSION (7) Hypothyroidism Assessment/Plan: -continue synthroid Code(s): E03.9 - HYPOTHYROIDISM, UNSPECIFIED (8) CAD (coronary artery disease) Assessment/Plan: -quiescent -holding aspirin secondary to hematuria -otherwise continue home regimen -defer restarting of aspirin to PCP and urology after cystoscopy, prefer to finish course of antibiotics and allow edema to decrease in bladder Code(s): I25.10 - ATHSCL HEART DISEASE OF [place] CORONARY ARTERY W/O ANG PCTRS
--- NOTE | 2016-08-13 13:06 | PN ---
Progress Note (short form) - Note Progress Note: Renal Follow up for NORMAN on CKD Pt seen and examined in the ICU awake and alert no acute complaints denies any further gross hematuria s/p CT of Abd and pelvis yesterday good urine output Vital Signs Temperature 98.1 F 08/13/16 10:00 Pulse Rate 68 08/13/16 10:00 Respiratory Rate 18 08/13/16 10:00 Blood Pressure 106/66 08/13/16 10:00 O2 Sat by Pulse Oximetry (%) 95 08/13/16 09:00 Intake & Output 08/10/16 08/11/16 08/12/16 08/13/16 23:59 23:59 23:59 23:59 Intake Total 600 1150 1230 Output Total 350 400 600 Balance 250 750 630 Weight 116 lb Gen: NAD, awake and alert HEENT: NC/AT, no JVD CVS: RRR, No M/R Lungs: CTA no rales or wheeze Abd: soft NT/ND Ext: No edema, clubbing or cyanosis : No bladder distension CBC, BMP 08/13/16 05:15 08/13/16 05:15 Current Medications Acetaminophen (Tylenol -) 650 mg PO Q4H PRN PRN Reason: FEVER OR PAIN Amlodipine Besylate (Norvasc -) 10 mg PO DAILY [facility] Last Admin: 08/13/16 11:11 Dose: Not Given Amoxicillin/Clavulanate Potassium (Augmentin - 500mg Tablet) 1 tab PO BIDWM [facility] Doxazosin Mesylate (Cardura -) 2 mg PO DAILY [facility] Last Admin: 08/12/16 10:16 Dose: 2 mg Lactobacillus Acidophilus (Bacid -) 1 tab PO DAILY [facility] Last Admin: 08/13/16 10:46 Dose: 1 tab Levothyroxine Sodium (Synthroid -) 100 mcg PO DAILY@0700 [facility] Last Admin: 08/13/16 07:06 Dose: 100 mcg Metoprolol Succinate (Toprol Xl -) 25 mg PO BID [facility] Last Admin: 08/13/16 10:46 Dose: 25 mg Ondansetron HCl (Zofran Injection) 4 mg IVPB Q6H PRN PRN Reason: NAUSEA Rosuvastatin Calcium (Crestor -) 10 mg PO HS [facility] Last Admin: 08/12/16 21:53 Dose: Not Given A/P 80 Year old woman with PMhx of CKD Stage 3 (baseline Cr 1.85), Hypertension, AICD presented with hematuria and found to have Acute Kidney Injury with Cr of 4. #Acute on Chronic Renal Insufficiency Renal function improved s/p IVF FeNa is pending Good urine output C3 and C4 are WNL so less likely Post Strep GN pt appears evolemic at the present time continue supportive care keep MAP> 65 avoid nephrotoxins Dose all meds for Cr Cl less then 20 no acute indication for [employer] at this time Can trend renal function off IVF #Hematuria/UTI Urology eval noted s/p CT of Abd non-contrast that showed no mass lesions gross hematuria resolved repeat UA today Lalo Hong
[2016-08-13] MEDS: DOXAZOSIN MESYLATE 2 MG TABLET (FP) PO SCH (14:37)
[2016-08-13 17:06] LABS: URINE APPEARANCE CLEAR; URINE BILIRUBIN NEGATIVE (NEGATIVE); URINE COLOR STRAW; URINE GLUCOSE (UA) NEGATIVE (NEGATIVE); URINE KETONE NEGATIVE (NEGATIVE); URINE NITRITE NEGATIVE (NEGATIVE); URINE PROTEIN NEGATIVE (NEGATIVE); URINE UROBILINOGEN NEGATIVE E.U./dl (0.2-1.0)
[2016-08-13 17:09] LABS: URINE BLOOD 1+ (NEGATIVE); URINE LEUK ESTERASE TRACE (NEGATIVE)
[2016-08-13 17:10] LABS: URINE MUCUS RARE; URINE RBC 2 /hpf (0-3); URINE WBC 5 /hpf (3-5)
[2016-08-13] MEDS: AMOX TR/POT CLAV 500MG/125MG TABLETS (FP) PO SCH (17:18)
[2016-08-13 17:24] LABS: URINE CREATININE 33.4 mg/dL
[2016-08-13] MEDS ORDERED: AMOX TR/POT CLAV 875MG/125MG TABLETS (FP) PO SCH (17:30)
[2016-08-13] MEDS: ROSUVASTATIN CA 10 MG TABLET (FP) PO SCH (21:25)
[2016-08-14] MEDS: LEVOTHYROXINE NA 100 MCG TABLET (FP) PO SCH (06:11)
[2016-08-14] MEDS ORDERED: PT OWN MED DRAWER 7, Y5N ONE ×4 (07:58→17:24)
[2016-08-14 08:00] LABS: BASOPHIL 0.5 % (0-2.0); EOSINOPHIL 1.7 % (0-4.5); MCH 30.4 pg (25.7-33.7); MCHC 33.4 g/dl (32.0-36.0); MEAN CELL VOLUME 90.8 fl (80-96); MEAN PLT VOLUME 10.2 fl (7.5-11.1); NEUTROPHILS 77.1 % (42.8-82.8); PLATELET COUNT 150 K/MM3 (134-434); RDW 16.5 % (11.6-15.6); WHITE BLOOD COUNT 6.8 K/mm3 (4.0-10.0)
[2016-08-14 09:20] LABS: ALBUMIN 2.3 g/dl (3.4-5.0); BILIRUBIN,TOTAL 0.3 mg/dL (0.2-1.0); CALCIUM 8.3 mg/dL (8.5-10.1); CREATININE 2.8 mg/dL (0.55-1.02); MAGNESIUM 1.9 mg/dL (1.8-2.4); PHOSPHOROUS 3.7 mg/dL (2.5-4.9); TOT PROT 5.5 g/dl (6.4-8.2)
[2016-08-14] MEDS: LACTOBACILLUS ACIDOPHILUS 1 EACH TAB (FP) PO SCH (10:30)
[2016-08-14] MEDS: DOXAZOSIN MESYLATE 2 MG TABLET (FP) PO SCH (10:30)
[2016-08-14] MEDS: amLODIPine BESYLATE 10 MG TABLET (FP) PO SCH (10:30)
[2016-08-14] MEDS: METOPROLOL SUCCINATE 25 MG TAB.SR.24H (FP) PO SCH ×2 (10:30→22:01)
[2016-08-14] MEDS: AMOX TR/POT CLAV 500MG/125MG TABLETS (FP) PO SCH ×2 (10:30→17:27)
--- NOTE | 2016-08-14 13:24 | PN ---
Progress Note, Physician Chief Complaint: Ms Kiran is without complaint. Denies cp, sob, n/v. Says she is walking without problem. - Current Medication List Current Medications: Active Medications Acetaminophen (Tylenol -) 650 mg PO Q4H PRN PRN Reason: FEVER OR PAIN Amlodipine Besylate (Norvasc -) 10 mg PO DAILY [facility] Last Admin: 08/14/16 10:30 Dose: 10 mg Amoxicillin/Clavulanate Potassium (Augmentin - 500mg Tablet) 1 tab PO BIDWM [facility] Last Admin: 08/14/16 10:30 Dose: 1 tab Doxazosin Mesylate (Cardura -) 2 mg PO DAILY [facility] Last Admin: 08/14/16 10:30 Dose: 2 mg Lactobacillus Acidophilus (Bacid -) 1 tab PO DAILY [facility] Last Admin: 08/14/16 10:30 Dose: 1 tab Levothyroxine Sodium (Synthroid -) 100 mcg PO DAILY@0700 [facility] Last Admin: 08/14/16 06:11 Dose: 100 mcg Metoprolol Succinate (Toprol Xl -) 25 mg PO BID [facility] Last Admin: 08/14/16 10:30 Dose: 25 mg Ondansetron HCl (Zofran Injection) 4 mg IVPB Q6H PRN PRN Reason: NAUSEA Rosuvastatin Calcium (Crestor -) 10 mg PO HS [facility] Last Admin: 08/13/16 21:25 Dose: 10 mg - Objective Vital Signs: Vital Signs Temperature 97.3 F L 08/14/16 10:00 Pulse Rate 95 H 08/14/16 10:00 Respiratory Rate 18 08/14/16 10:00 Blood Pressure 136/60 08/14/16 10:00 O2 Sat by Pulse Oximetry (%) 95 08/14/16 09:00 Constitutional: Yes: Well Nourished, No Distress, Calm Cardiovascular: Yes: Regular Rate and Rhythm. No: Gallop, Murmur, Rub Respiratory: Yes: Regular, CTA Bilaterally. No: Rales, Rhonchi, Wheezes Gastrointestinal: Yes: Normal Bowel Sounds, Soft. No: Distention, Tenderness Extremities: Yes: WNL Edema: No Labs: CBC, BMP 08/14/16 06:00 08/14/16 06:00 Problem List - Problems (1) UTI (urinary tract infection) Code(s): N39.0 - URINARY TRACT INFECTION, SITE NOT SPECIFIED Qualifiers: Urinary tract infection type: acute cystitis Hematuria presence: with hematuria Qualified Code(s): N30.01 - Acute cystitis with hematuria (2) Acute renal failure Code(s): N17.9 - ACUTE KIDNEY FAILURE, UNSPECIFIED Qualifiers: Acute renal failure type: unspecified Qualified Code(s): N17.9 - Acute kidney failure, unspecified (3) CKD (chronic kidney disease) Code(s): N18.9 - CHRONIC KIDNEY DISEASE, UNSPECIFIED Qualifiers: Chronic kidney disease stage: unspecified stage Qualified Code(s): N18.9 - Chronic kidney disease, unspecified (4) Hematuria Code(s): R31.9 - HEMATURIA, UNSPECIFIED (5) HLD (hyperlipidemia) Code(s): E78.5 - HYPERLIPIDEMIA, UNSPECIFIED (6) HTN (hypertension) Code(s): I10 - ESSENTIAL (PRIMARY) HYPERTENSION (7) Hypothyroidism Code(s): E03.9 - HYPOTHYROIDISM, UNSPECIFIED (8) CAD (coronary artery disease) Code(s): I25.10 - ATHSCL HEART DISEASE OF [place] CORONARY ARTERY W/O ANG PCTRS Assessment/Plan (1) UTI (urinary tract infection) Assessment/Plan: -growing enterococcus -on augmentin, continue -can discharge home on augmentin Code(s): N39.0 - URINARY TRACT INFECTION, SITE NOT SPECIFIED Qualifiers: Urinary tract infection type: acute cystitis Hematuria presence: with hematuria Qualified Code(s): N30.01 - Acute cystitis with hematuria (2) Acute renal failure Assessment/Plan: -creatinine improving -nephrology following -now off of IVF Code(s): N17.9 - ACUTE KIDNEY FAILURE, UNSPECIFIED Qualifiers: Acute renal failure type: unspecified Qualified Code(s): N17.9 - Acute kidney failure, unspecified (3) CKD (chronic kidney disease) Assessment/Plan: -with ARF -nephrology following -baseline creatinine around 1.8 Code(s): N18.9 - CHRONIC KIDNEY DISEASE, UNSPECIFIED Qualifiers: Chronic kidney disease stage: unspecified stage Qualified Code(s): N18.9 - Chronic kidney disease, unspecified (4) Hematuria Assessment/Plan: -ultrasound and CT scan results reviewed -appreciate urology assistance -outpatient cystoscopy Code(s): R31.9 - HEMATURIA, UNSPECIFIED (5) HLD (hyperlipidemia) Assessment/Plan: -continue crestor Code(s): E78.5 - HYPERLIPIDEMIA, UNSPECIFIED (6) HTN (hypertension) Assessment/Plan: -continue toprol xl, cardura, and norvasc -well controlled Code(s): I10 - ESSENTIAL (PRIMARY) HYPERTENSION (7) Hypothyroidism Assessment/Plan: -continue synthroid Code(s): E03.9 - HYPOTHYROIDISM, UNSPECIFIED (8) CAD (coronary artery disease) Assessment/Plan: -quiescent -holding aspirin secondary to hematuria -otherwise continue home regimen -defer restarting of aspirin to PCP and urology after cystoscopy, prefer to finish course of antibiotics and allow edema to decrease in bladder Code(s): I25.10 - ATHSCL HEART DISEASE OF [place] CORONARY ARTERY W/O ANG PCTRS Dispo -discharge when safe from a nephrology standpoint
--- NOTE | 2016-08-14 15:29 | PN ---
Progress Note (short form) - Note Progress Note: Renal Follow up for NORMAN on CKD Pt seen and examined at the bedside no acute complaints no sob, chest pain, N/V/D no gross hematuria Vital Signs Temperature 97.9 F 08/14/16 14:08 Pulse Rate 82 08/14/16 14:08 Respiratory Rate 18 08/14/16 14:08 Blood Pressure 121/61 08/14/16 14:08 O2 Sat by Pulse Oximetry (%) 95 08/14/16 09:00 Intake & Output 08/11/16 08/12/16 08/13/16 08/14/16 23:59 23:59 23:59 23:59 Intake Total 600 1150 1870 100 Output Total 350 400 600 Balance 860 793 8085 100 Weight 120 lb 6 oz 118 lb 4.8 oz Gen: NAD, awake and alert CVS: RRR, No M/R Lungs: CTA no rales or wheeze Abd: soft NT/ND Ext: No edema, clubbing or cyanosis CBC, BMP 08/14/16 06:00 08/14/16 06:00 Current Medications Acetaminophen (Tylenol -) 650 mg PO Q4H PRN PRN Reason: FEVER OR PAIN Amlodipine Besylate (Norvasc -) 10 mg PO DAILY [facility] Last Admin: 08/14/16 10:30 Dose: 10 mg Amoxicillin/Clavulanate Potassium (Augmentin - 500mg Tablet) 1 tab PO BIDWM [facility] Last Admin: 08/14/16 10:30 Dose: 1 tab Doxazosin Mesylate (Cardura -) 2 mg PO DAILY [facility] Last Admin: 08/14/16 10:30 Dose: 2 mg Lactobacillus Acidophilus (Bacid -) 1 tab PO DAILY [facility] Last Admin: 08/14/16 10:30 Dose: 1 tab Levothyroxine Sodium (Synthroid -) 100 mcg PO DAILY@0700 [facility] Last Admin: 08/14/16 06:11 Dose: 100 mcg Metoprolol Succinate (Toprol Xl -) 25 mg PO BID [facility] Last Admin: 08/14/16 10:30 Dose: 25 mg Ondansetron HCl (Zofran Injection) 4 mg IVPB Q6H PRN PRN Reason: NAUSEA Rosuvastatin Calcium (Crestor -) 10 mg PO HS [facility] Last Admin: 08/13/16 21:25 Dose: 10 mg A/P 80 Year old woman with PMhx of CKD Stage 3 (baseline Cr 1.85), Hypertension, AICD presented with hematuria and found to have Acute Kidney Injury with Cr of 4. #Acute on Chronic Renal Insufficiency Renal function improving off IVF continue to trend BUN/Cr, if continues to improve would be ok to be discharged and monitored as outpatient would not restart Losartan at this time Avoid NSAIDs Oral hydration as tolerated #Hematuria/UTI Urology eval noted s/p CT of Abd non-contrast that showed no mass lesions repeat UA showed no significant blood so likely etiology was cystitis/UTI continue Abx as per primary Lalo Hong
[2016-08-14] MEDS: ROSUVASTATIN CA 10 MG TABLET (FP) PO SCH (22:01)
[2016-08-15 00:06] LABS: C-ANCA <1:20 titer (Neg:<1:20); MYELOPEROXIDASE ANTIBODY <9.0 U/mL (0.0-9.0); P-ANCA <1:20 titer (Neg:<1:20); PROTEINASE-3 ANTIBODY <3.5 U/mL (0.0-3.5)
[2016-08-15] MEDS: LEVOTHYROXINE NA 100 MCG TABLET (FP) PO SCH (05:59)
[2016-08-15 07:42] LABS: BASOPHIL 0.7 % (0-2.0); EOSINOPHIL 1.5 % (0-4.5); MCH 30.4 pg (25.7-33.7); MCHC 33.5 g/dl (32.0-36.0); MEAN CELL VOLUME 90.9 fl (80-96); MEAN PLT VOLUME 9.9 fl (7.5-11.1); PLATELET COUNT 187 K/MM3 (134-434); RDW 15.9 % (11.6-15.6); WHITE BLOOD COUNT 7.5 K/mm3 (4.0-10.0)
[2016-08-15] MEDS ORDERED: PT OWN MED DRAWER 7, Y5N ONE (08:32)
[2016-08-15 08:52] LABS: CALCIUM 8.3 mg/dL (8.5-10.1); CREATININE 2.6 mg/dL (0.55-1.02); MAGNESIUM 1.8 mg/dL (1.8-2.4); PHOSPHOROUS 3.8 mg/dL (2.5-4.9)
[2016-08-15] MEDS: AMOX TR/POT CLAV 500MG/125MG TABLETS (FP) PO SCH (08:52)
[2016-08-15] MEDS: amLODIPine BESYLATE 10 MG TABLET (FP) PO SCH (09:01)
[2016-08-15] MEDS: LACTOBACILLUS ACIDOPHILUS 1 EACH TAB (FP) PO SCH (09:01)
[2016-08-15] MEDS: METOPROLOL SUCCINATE 25 MG TAB.SR.24H (FP) PO SCH (09:01)
[2016-08-15] MEDS: DOXAZOSIN MESYLATE 2 MG TABLET (FP) PO SCH (09:01)
--- NOTE | 2016-08-15 12:07 | PN ---
Progress Note (short form) - Note Progress Note: Renal Follow up for NORMAN on CKD Pt seen and examined at the bedside no complaints to go home today Vital Signs Temperature 98 F 08/15/16 05:31 Pulse Rate 97 H 08/15/16 05:31 Respiratory Rate 20 08/15/16 05:31 Blood Pressure 114/72 08/15/16 05:31 O2 Sat by Pulse Oximetry (%) 95 08/14/16 21:00 Intake & Output 08/12/16 08/13/16 08/14/16 08/15/16 23:59 23:59 23:59 23:59 Intake Total 1150 1870 250 250 Output Total 400 600 Balance 750 1270 250 250 Weight 120 lb 6 oz 118 lb 4.8 oz 118 lb 4.8 oz Gen: NAD, awake and alert CVS: RRR, No M/R Lungs: CTA no rales or wheeze Abd: soft NT/ND Ext: No edema, clubbing or cyanosis CBC, BMP 08/15/16 06:00 08/15/16 06:00 Current Medications Acetaminophen (Tylenol -) 650 mg PO Q4H PRN PRN Reason: FEVER OR PAIN Amlodipine Besylate (Norvasc -) 10 mg PO DAILY [facility] Last Admin: 08/15/16 09:01 Dose: 10 mg Amoxicillin/Clavulanate Potassium (Augmentin - 500mg Tablet) 1 tab PO BIDWM [facility] Last Admin: 08/15/16 08:52 Dose: 1 tab Doxazosin Mesylate (Cardura -) 2 mg PO DAILY [facility] [place] Last Admin: 08/15/16 09:01 Dose: 2 mg Lactobacillus Acidophilus (Bacid -) 1 tab PO DAILY [facility] Last Admin: 08/15/16 09:01 Dose: 1 tab Levothyroxine Sodium (Synthroid -) 100 mcg PO DAILY@0700 [facility] Last Admin: 08/15/16 05:59 Dose: 100 mcg Metoprolol Succinate (Toprol Xl -) 25 mg PO BID [facility] [place] Last Admin: 08/15/16 09:01 Dose: 25 mg Ondansetron HCl (Zofran Injection) 4 mg IVPB Q6H PRN PRN Reason: NAUSEA Rosuvastatin Calcium (Crestor -) 10 mg PO HS [facility] Last Admin: 08/14/16 22:01 Dose: 10 mg A/P 80 Year old woman with PMhx of CKD Stage 3 (baseline Cr 1.85), Hypertension, AICD presented with hematuria and found to have Acute Kidney Injury with Cr of 4. #Acute on Chronic Renal Insufficiency Renal function stable at this time off IVF avoid JUANCHO/ARB for now oral hydration encourged avoid nsaids for follow up in the office in 1-2 weeks with repeat labs #Hematuria/UTI Urology eval noted s/p CT of Abd non-contrast that showed no mass lesions repeat UA showed no significant blood so likely etiology was cystitis/UTI continue Abx as per primary Lalo Hong
--- NOTE | 2016-08-15 12:13 | PN ---
Progress Note (short form) - Note Progress Note: No fever NO pain No blood in th urine O/E Heart regular Lungs clear Abd soft Vital Signs Period Temp Pulse Resp BP Sys/Stark Pulse Ox Last 24 Hr 97.9 F-98.6 F 76-97 18-20 103-123/61-72 95 Laboratory Results - last 24 hr 08/12/16 08/15/16 08/15/16 05:20 06:00 06:00 WBC 7.5 RBC 3.38 L Hgb 10.3 L Hct 30.7 L MCV 90.9 MCHC 33.5 RDW 15.9 H Plt Count 187 D MPV 9.9 Neutrophils % 77.0 Lymphocytes % 12.3 Monocytes % 8.5 Eosinophils % 1.5 Basophils % 0.7 Sodium 143 Potassium 4.3 Chloride 108 H Carbon Dioxide 24 Anion Gap 11 BUN 59 H Creatinine 2.6 H Random Glucose 94 Calcium 8.3 L Phosphorus 3.8 Magnesium 1.8 c-ANCA <1:20 Proteinase 3 (PR3) <3.5 p-ANCA <1:20 Atypical p-ANCA <1:20 Myeloperoxidase Ab <9.0 Current Medications Acetaminophen (Tylenol -) 650 mg PO Q4H PRN PRN Reason: FEVER OR PAIN Amlodipine Besylate (Norvasc -) 10 mg PO DAILY [facility] Last Admin: 08/15/16 09:01 Dose: 10 mg Amoxicillin/Clavulanate Potassium (Augmentin - 500mg Tablet) 1 tab PO BIDWM [facility] Last Admin: 08/15/16 08:52 Dose: 1 tab Doxazosin Mesylate (Cardura -) 2 mg PO DAILY [facility] Last Admin: 08/15/16 09:01 Dose: 2 mg Lactobacillus Acidophilus (Bacid -) 1 tab PO DAILY [facility] Last Admin: 08/15/16 09:01 Dose: 1 tab Levothyroxine Sodium (Synthroid -) 100 mcg PO DAILY@0700 [facility] Last Admin: 08/15/16 05:59 Dose: 100 mcg Metoprolol Succinate (Toprol Xl -) 25 mg PO BID [facility] Last Admin: 08/15/16 09:01 Dose: 25 mg Ondansetron HCl (Zofran Injection) 4 mg IVPB Q6H PRN PRN Reason: NAUSEA Rosuvastatin Calcium (Crestor -) 10 mg PO HS [facility] Last Admin: 08/14/16 22:01 Dose: 10 mg Assessment/Plan (1) UTI (urinary growing enterococcus -on augmentin, continue -can discharge home on augmentin Code(s): N39.0 - URINARY TRACT INFECTION, SITE NOT SPECIFIED Qualifiers: Urinary tract infection type: acute cystitis Hematuria presence: with hematuria Qualified Code(s): N30.01 - Acute cystitis with hematuria (2) Acute renal failure Assessment/Plan: -creatinine improving f/u as op Code(s): N17.9 - ACUTE KIDNEY FAILURE, UNSPECIFIED Qualifiers: Acute renal failure type: unspecified Qualified Code(s): N17.9 - Acute kidney failure, unspecified (3) CKD (chronic kidney disease) Assessment/Plan: -baseline creatinine around 1.8 Code(s): N18.9 - CHRONIC KIDNEY DISEASE, UNSPECIFIED Qualifiers: Chronic kidney disease stage: unspecified stage Qualified Code(s): N18.9 - Chronic kidney disease, unspecified (4) Hematuria Assessment/Plan: -ultrasound and CT scan results reviewed -appreciate urology assistance -outpatient cystoscopy Code(s): R31.9 - HEMATURIA, UNSPECIFIED (5) HLD (hyperlipidemia) Assessment/Plan: -continue crestor Code(s): E78.5 - HYPERLIPIDEMIA, UNSPECIFIED (6) HTN (hypertension) Assessment/Plan: -continue toprol xl, cardura, and norvasc -well controlled Code(s): I10 - ESSENTIAL (PRIMARY) HYPERTENSION (7) Hypothyroidism Assessment/Plan: -continue synthroid Code(s): E03.9 - HYPOTHYROIDISM, UNSPECIFIED
[2016-08-15 14:30] VITALS: BP 128/50; PULSE 77; TEMP 97.8
== END 2016-08-15 14:36 | disposition home or self-care (01) | DRG 683 ==
LOC: JER 16:59 → JERBED 22:04 → JICU 08-11 08:57 → J7W 08-13 18:39
PROVIDERS: ADMIT Internal Medicine; ATTEND Internal Medicine
DX: N17.9 Acute kidney failure, unspecified (principal); N39.0 Urinary tract infection, site not specified; R31.0 Gross hematuria; I12.9 Hypertensive chronic kidney disease with stage 1 through stage 4 chronic kidney disease, or unspecified chronic kidney disease; E78.5 Hyperlipidemia, unspecified; E03.9 Hypothyroidism, unspecified; I25.10 Atherosclerotic heart disease of native coronary artery without angina pectoris; Z95.0 Presence of cardiac pacemaker; I73.9 Peripheral vascular disease, unspecified; D64.9 Anemia, unspecified; N18.3 Chronic kidney disease, stage 3 (moderate); D72.829 Elevated white blood cell count, unspecified
CPT/HCPCS: 36415; 71010-TC; 74176-TC; 76775-TC; 76856-TC; 80048; 80053; 81003; 81015; 82570; 83520; 83735; 84100; 84300; 85025; 86160; 86162; 86256; 87086; 87186; 93005; 93010; 97116-GP; 97161-GP; 99284-25; J1644

== ENCOUNTER 2017-11-04 05:52 | Inpatient (IN) | payer OTHER, MEDICARE ==
[2017-11-02 11:28] VITALS: BMI 21.7
[2017-11-08 13:21] VITALS: BP 129/76; PULSE 93; TEMP 97.8
== END 2017-11-08 15:55 | DRG 470 ==
LOC: FASU 05:52 → EDSTATUS 12:00 → FM/S 13:56 → FASU 13:56 → FM/S 11-05 21:52
PROVIDERS: ADMIT Student in an Organized Health Care Education/Training Program; ATTEND Student in an Organized Health Care Education/Training Program
PROC: 0SRC0L9 Replacement of Right Knee Joint with Medial Unicondylar Synthetic Substitute, Cemented, Open Approach (ICD-10-PCS; principal; 2017-11-04)
PROC: 8E0Y0CZ Robotic Assisted Procedure of Lower Extremity, Open Approach (ICD-10-PCS; 2017-11-04)
DX: M17.11 Unilateral primary osteoarthritis, right knee (principal); T81.89XA Other complications of procedures, not elsewhere classified, initial encounter; G25.3 Myoclonus; T41.3X5A Adverse effect of local anesthetics, initial encounter; Y83.8 Other surgical procedures as the cause of abnormal reaction of the patient, or of later complication, without mention of misadventure at the time of the procedure; J44.9 Chronic obstructive pulmonary disease, unspecified; I25.10 Atherosclerotic heart disease of native coronary artery without angina pectoris; Z95.810 Presence of automatic (implantable) cardiac defibrillator; E03.9 Hypothyroidism, unspecified; Z85.528 Personal history of other malignant neoplasm of kidney; Z90.5 Acquired absence of kidney; Z87.891 Personal history of nicotine dependence; I12.9 Hypertensive chronic kidney disease with stage 1 through stage 4 chronic kidney disease, or unspecified chronic kidney disease; N18.3 Chronic kidney disease, stage 3 (moderate)
CPT/HCPCS: 36415; 73560-TC-RT-FY; 80048; 80053; 81003; 81015; 82607; 82746; 83735; 84100; 85025; 85027; 94010; 94760; 97116-GP; 97162-GP; J0131; J1100; J7030